=== PATIENT | male | born 1960 | race Asian ===

== ENCOUNTER 2017-10-19 13:32 | Emergency (ER) | payer SELFPAY ==
[~2017-10-19] VITALS: Ht 170.2 cm; Wt 63.0 kg
[2017-10-19] MEDS ORDERED: IBUPROFEN 600 MG TABLET PO ONE (15:30)
[2017-10-19] MEDS ORDERED: PERTUSS(ACELL),DIPH,TET VAC/PF 0.5 ML VIAL IM ONE (15:30)
[2017-10-19] MEDS ORDERED: METHOCARBAMOL 500 MG TABLET PO ONE (15:30)
[2017-10-19 16:38] VITALS: BP 140/88
== END 2017-10-19 16:42 | disposition home or self-care (01) ==
LOC: EMS 13:33
DX: S13.4XXA Sprain of ligaments of cervical spine, initial encounter (principal); R03.0 Elevated blood-pressure reading, without diagnosis of hypertension; M79.672 Pain in left foot; V49.40XA Driver injured in collision with unspecified motor vehicles in traffic accident, initial encounter; Y93.89 Activity, other specified; Y92.89 Other specified places as the place of occurrence of the external cause; Y99.8 Other external cause status
CPT/HCPCS: 72040; 90471; 90715; 99284

== ENCOUNTER 2017-10-27 13:16 | Emergency (ER) | payer OTHER ==
[~2017-10-27] VITALS: Ht 170.2 cm; Wt 71.0 kg
[2017-10-27] MEDS ORDERED: KETOROLAC TROMETHAMINE 30 MG/ML VIAL IM ONE (14:00)
[2017-10-27] MEDS ORDERED: METHOCARBAMOL 500 MG TABLET PO ONE (14:00)
[2017-10-27 14:54] VITALS: BP 160/95
== END 2017-10-27 15:03 | disposition home or self-care (01) ==
LOC: EMS 13:16
DX: S46.912A Strain of unspecified muscle, fascia and tendon at shoulder and upper arm level, left arm, initial encounter (principal); G56.92 Unspecified mononeuropathy of left upper limb; F17.210 Nicotine dependence, cigarettes, uncomplicated; V49.9XXA Car occupant (driver) (passenger) injured in unspecified traffic accident, initial encounter; Y93.89 Activity, other specified; Y92.89 Other specified places as the place of occurrence of the external cause; Y99.8 Other external cause status
CPT/HCPCS: 96372; 99283; 99406; J1885

== ENCOUNTER 2017-11-04 09:58 | Emergency (ER) | payer OTHER ==
[~2017-11-04] VITALS: Ht 170.2 cm; Wt 75.0 kg
[2017-11-04 11:04] VITALS: BP 143/109
== END 2017-11-04 11:11 | disposition home or self-care (01) ==
LOC: EMS 09:59
DX: S43.402A Unspecified sprain of left shoulder joint, initial encounter (principal); I10 Essential (primary) hypertension; F17.210 Nicotine dependence, cigarettes, uncomplicated; X50.0XXA Overexertion from strenuous movement or load, initial encounter; Y93.89 Activity, other specified; Y92.89 Other specified places as the place of occurrence of the external cause; Y99.8 Other external cause status
CPT/HCPCS: 99283; 99406